=== PATIENT | male | born 1950 | race Caucasian/White ===

== ENCOUNTER → 2018-10-18 19:13 | Outpatient (REF) | payer MEDICARE, OTHER, SELFPAY ==
[2018-10-18 19:55] LABS: BUN Creatinine Ratio 15.5 (6-22); Blood Urea Nitrogen 17 mg/dL (9-20); Calcium 9.2 mg/dL (8.4-10.2); Carbon Dioxide 27 mmol/L (22-32); Chloride 105 mmol/L (98-107); Estimated Glomerular Filt Rate > 60.0 mL/min (>60); Glucose 134 mg/dL (80-110); HEMOLYSIS < 15 (0-50); Sodium 142 mmol/L (137-145)
[2018-10-23 21:10] LABS: Specimen Source Kidney
== END ==
LOC: LAB 19:13
PROVIDERS: Visit Provider Family Medicine Geriatric Medicine
DX: N20.9 Urinary calculus, unspecified (principal); M17.12 Unilateral primary osteoarthritis, left knee
CPT/HCPCS: 36415; 80048; 82370

== ENCOUNTER → 2019-03-21 13:26 | Outpatient (CLI) | payer MEDICARE, OTHER, SELFPAY ==
--- NOTE | 2019-03-21 | DI.RAD.S_ITS ---
PROCEDURE: FL ARTHROGRAM KNEE LT INDICATIONS: INTERNAL DERANGEMENT LEFT KNEE TECHNIQUE: The indications, alternatives, benefits, risks, and complications of the procedure were explained to the patient. Written informed consent was obtained and placed in the chart. The knee was examined fluoroscopically, and a site chosen for knee joint injection. The skin was prepped and draped in a sterile fashion, and 1% Lidocaine infiltrated from the skin down to the articular surface. A hypodermic needle was then introduced into the joint and iodinated contrast media was instilled to confirm the intra-articular needle tip placement. This was followed by approximately 50 mL dilute solution of a gadolinium containing MR contrast agent. The needle was removed and a bandage was applied. An Felipe wrap was then applied around the knee joint to keep the contrast from collecting in the suprapatellar recess. The patient experienced no complications throughout the procedure and left the fluoroscopic suite in no apparent distress. FINDINGS: Single fluoroscopic spot image demonstrates intra-articular location to injected iodinated contrast. IMPRESSION: Successful fluoroscopically guided administration of dilute Gadolinium solution into the knee joint for MR arthrogram. Dictated by: Santiago Golden M.D. on 03/21/2019 at 14:46 Approved by: Santiago Golden M.D. on 03/21/2019 at 14:47
--- NOTE | 2019-03-21 | DI.MRI.S_ITS ---
PROCEDURE: MR KNEE LT W CON INDICATIONS: INTERNAL DERANGEMENT LEFT KNEE TECHNIQUE: After the administration of 50 mL of dilute intra-articular Gadolinium contrast, sagittal T1 spin echo with fat saturation and PD fast spin echo with fat saturation, coronal T1 spin echo with and without fat saturation, coronal T2 fast spin echo with fat saturation, axial PD fast spin echo with fat saturation through the knee. COMPARISON: [facility] Outside Film, MR, MR KNEE LEFT WITHOUT CONTRAST, 11/10/2018, 11:27. FINDINGS: Image quality: Excellent. Menisci: Lateral meniscus appears intact. Marked truncation of the free margin of the medial meniscal body, in addition to abnormal intermediate signal extending to the undersurface of the posterior horn. However, no definite intrasubstance gadolinium signal intensity. Cruciate ligaments: The anterior and posterior cruciate ligaments appear intact. Medial structures: The medial collateral ligament appears intact. The posterior oblique ligament, semimembranosus tendon insertions, oblique popliteal ligament, and meniscocapsular junction appear intact. Visualized portions of the pes anserinus tendons appear normal. No abnormal bursal fluid. Lateral structures: The lateral collateral ligament, long and short heads of the biceps femoris tendon appear intact. The popliteus tendon appears normal; the popliteofibular ligament appears intact. The posterosuperior and anteroinferior popliteomeniscal fascicles appear intact. The arcuate and fabellofibular ligaments appear intact around the lateral inferior geniculate artery. Iliotibial band appears normal. Anterior structures: The quadriceps and patellar tendons appear intact although there is mild proximal and distal patellar tendinopathy. Patellar alignment is normal. No femoral trochlear dysplasia or ventral trochlear prominence. No edema in the infrapatellar fat pad. Bone and cartilage: No focal marrow contusion or discrete low signal fracture line. Within the medial compartment, full-thickness femoral and tibial articular cartilage loss with subchondral marrow edema. Within the lateral compartment, mild diffuse partial-thickness loss of the femoral cartilage. Subchondral marrow edema may be related to early intraosseous ganglion cyst formation on image 20 series 12. Within the patellofemoral compartment, diffuse surface fraying of the femoral and patellar articular cartilage. Joint space: No Easley's cyst. No intra-articular loose bodies identified. IMPRESSION: Medial meniscal irregularity involving the body and posterior horn, which could be related to postoperative change if there is concordant surgical history (versus tear). Overall, the appearance grossly unchanged since 11/10/18, and no definite intrasubstance gadolinium signal intensity to suggest recurrent tear. Severe degenerative joint disease, most pronounced in the medial compartment. Slight interval progression. Age-indeterminate mild proximal and distal patellar tendinopathy. Dictated by: Santiago Golden M.D. on 03/21/2019 at 16:08 Approved by: Santiago Golden M.D. on 03/21/2019 at 16:18
== END ==
PROVIDERS: Visit Provider Orthopaedic Surgery
DX: M23.92 Unspecified internal derangement of left knee (principal); M17.12 Unilateral primary osteoarthritis, left knee
CPT/HCPCS: 27369; 73722; 77002

== ENCOUNTER → 2022-05-10 11:17 | Outpatient (CLI) | payer MEDICARE, OTHER, SELFPAY ==
[2022-05-10 12:06] LABS: COVID19 -Nasal RAPID Negative (Negative)
== END ==
PROVIDERS: PCP Family Medicine; Referring Provider Orthopaedic Surgery; Visit Provider Orthopaedic Surgery
DX: Z20.822 Contact with and (suspected) exposure to COVID-19 (principal)
CPT/HCPCS: 87635; C9803

== ENCOUNTER 2022-05-12 11:04 | Day surgery (SDC) | payer MEDICARE, OTHER, SELFPAY ==
[2022-05-10 09:44] VITALS: BMI 26.4
[2022-05-12] VITALS (7 sets, daily range): BP systolic 109–173; BP diastolic 60–87; PULSE 55–70; RESP 16–28; TEMP 36–36.5; O2SAT 96–98; BMI 26.4
[2022-05-12] MEDS: LACTATED RINGERS 1,000 ML 42 ML IV ×2 (12:10→14:50)
--- NOTE | 2022-05-12 13:14 | P.HP_ITS ---
History of Present Illness History of Present Illness Date Patient Seen: 05/12/22 Time Patient Seen: 13:15 Chief complaint: MCPJ Replacement R Narrative: Patient with longstanding pain and stiffness to the MCP joint of his index finger. Patient has been unresponsive to conservative treatment and is having a significant impact on his everyday hand use. Patient History Medical History Anxiety Benign essential HTN CAD (coronary artery disease) Chronic hepatitis C without mention of hepatic coma Cognitive impairment Depression Epilepsy GERD (gastroesophageal reflux disease) H/O renal calculi History of heart attack Hx of irritable bowel syndrome Hyperlipidemia Hypertriglyceridemia Insomnia due to medical condition Migraines NSTEMI (non-ST elevated myocardial infarction) (2011) Obstructive sleep apnea, adult Osteoarthritis of left knee Osteoarthritis of right hand Rosacea, unspecified Seizure disorder TIA (transient ischemic attack) Type 2 diabetes mellitus Vitamin B12 deficiency Surgical History History of cardiac cath (2016) S/P coronary artery stent placement (06/21/12) Family & Social History Family History Mother Depression Dementia Family/Other Alcohol abuse Social History: household members spouse Tobacco & Substance use: Smoking Status Former smoker alcohol intake former Substance Use Type does not use Meds Home Medications and Allergies Home Medications Medication Instructions Recorded Confirmed Type acetaminophen 325 mg tablet PRN ##0 02/07/17 12/13/20 History amitriptyline 10 mg tablet 10 mg PO QDAY ##0 02/07/17 12/13/20 History aspirin 81 mg tablet,delayed 81 mg PO QDAY ##0 02/07/17 12/13/20 History release (Martin Low Dose Aspirin) bismuth subsalicylate 262 mg/15 mL 524 mg PO Q30M PRN (Drug) Ingestion 09/07/20 12/13/20 History oral suspension (Pepto-Bismol) coenzyme Q10 100 mg capsule 100 mg PO DAILY 09/07/20 05/12/22 History desonide 0.05 % topical cream 1 applic topical DAILY 09/07/20 05/03/22 History diphenhydramine HCl 25 mg tablet 25 mg PO QID PRN Allergies 09/07/20 05/03/22 History (Allergy (diphenhydramine)) melatonin 1 mg tablet 1 mg PO BEDTIME PRN Sleep 09/07/20 05/12/22 History triamcinolone acetonide 0.1 % 1 applic topical DAILY PRN Rash 09/07/20 05/03/22 History topical cream (Triderm) levetiracetam 250 mg tablet 250 mg PO .COMPLEX seizures 12/13/20 05/12/22 Histo ry (Keppra) metformin 500 mg tablet 500 mg PO BID 12/13/20 05/12/22 History metoprolol succinate 50 mg 50 mg PO QDAY #0 tabs 12/13/20 05/12/22 History tablet,extended release 24 hr nitroglycerin 0.4 mg sublingual 0.4 mg sublingual PRN #0 tabs 12/13/20 05/03/22 History tablet (Nitrostat) rosuvastatin 20 mg tablet (Crestor) 20 mg PO DAILY 12/13/20 05/12/22 History sertraline 50 mg tablet (Zoloft) 50 mg PO DAILY 12/13/20 05/12/22 History sumatriptan succinate 25 mg tablet 25 mg PO ONCE 12/13/20 05/03/22 History (Imitrex) terbinafine HCl 250 mg tablet 250 mg PO DAILY fungal infection 12/13/20 05/12/22 History Allergies Allergy/AdvReac Type Severity Reaction Status Date / Time hydrocodone AdvReac Mild nausea, Verified 05/12/22 11:29 vomiting hydromorphone AdvReac Mild nausea, Verified 05/12/22 11:29 vomiting lisinopril [LISINOPRIL] AdvReac Mild Cough Verified 05/12/22 11:29 meperidine AdvReac Mild nausea Verified 05/12/22 11:29 oxycodone [From PERCOCET] AdvReac Mild Nausea Verified 05/12/22 11:29 propoxyphene AdvReac Mild Nausea Verified 05/12/22 11:29 [From DARVOCET-N] Exam Vital Signs (past 8 hours): - 05/12/22 11:45 Temperature 97.7 F Pulse Rate 55 L Respiratory Rate 18 Blood Pressure 153/79 H Pulse Oximetry 98 Oxygen Delivery Method Room Air Oxygen Delivery Method Room Air Narrative Exam Narrative: Slight increase in joint size at the MCP joint. Able to fully extend but limited in flexion to about 60?. Pain of push beyond that passively. No sign of any significant instability. Stable to varus and valgus stress. No sign of any sagittal band injuries. Normal motion at the D IP and PIP joint of that right index finger. Assessment & Plan Assessment & Plan narrative: Patient with end-stage arthritic changes to his right index finger MCP joint. Patient has been unresponsive to conservative treatment. Due to this fact patient is interested in a MCP joint replacement. Patient fully understands the risks and limitations associated with the procedure. All of his questions and concerns were answered to his full satisfaction. The risk, benefits, alternatives, possible complications, operative course, and postop outcomes were discussed. Complications including but not limiting to bleeding, infection, fracture, nerve injury, continued pain postoperatively or instability postoperatively were discussed in detail. Medical complications including but not limited to deep venous thrombosis event, anesthesia complications with excessive bleeding, vascular events or cardiac events and other possible complications were discussed in detail. Need for postoperative rehabilitation and anticipated hospital stay and clinical course were discussed in detail. Patient acknowledges understanding and elects to proceed with surgery. Time Spent With Patient Critical Care time: I spent a total of [] minutes of critical care time on this patient's care today; this time is exclusive of procedural time.
--- NOTE | 2022-05-12 13:17 | PM.PREOP ---
Pre-operative Note Interval Note History & Physical reviewed/Exam performed by Physician: Yes Changes to H&P: No
[2022-05-12] MEDS: CEFAZOLIN 2 GM/100 ML PREMIX 100 ML IV (13:45)
--- NOTE | 2022-05-12 14:18 | SUR.OPER ---
Supine on padded OR bed, head on pillow, arms secured on padded arm boards at <90 degrees abduction, legs uncrossed, safety belt at thigh, tape over blanket over lower legs. Pillow under knees, gel pad under heels.
[2022-05-12] MEDS: BUPIVACAINE 0.5% W/ EPI (PF) 30 ML VIAL INJ (14:27)
--- NOTE | 2022-05-12 15:09 | P.OP_ITS ---
Operative Date/Time/Diagnoses Date of procedure: 05/12/22 Time of procedure: 13:30 Pre-op diagnosis: Right index finger MCP joint arthritis Post-op diagnosis: same Procedure & Clinicians Procedure: Right index finger MCP joint replacement Same procedure as scheduled: Yes Indications: End-stage arthritis MCP joint Surgeon: Tex [place] Click Yes if Unassisted: Yes Anesthesia Type: General Operative Notes Findings: End-stage arthritis to the MCP joint of the right index finger with full- thickness cartilage loss. Applied: implant(s) (Size 30 pyrocarbon implant) Procedure in detail: On date of service patient was met in the holding area where his operative site was signed witnessed by the OR staff. Surgery was once again discussed with the patient and any remaining questions or concerns he had were answered fully. Patient was taken back to the operating theater placed on the operating table in a supine position. Great care was taken to ensure that all bony prominences were appropriately padded a well-padded tourniquet was placed up along the upper extremity. Time-out was performed verifying patient's name, procedure, and operative site. Esmarch was used to exsanguinate the limb and the tourniquet was turned up to 250 mmHg. A dorsal incision was made over the MCP joint using a 15 blade. Fifteen blade was used incise the skin and fascial tissue. Electrocautery was used to achieve hemostasis. Retractors were placed and a deep knife was then used to make an incision just to the side of the extensor tendons through the joint capsule. Sharp dissection was continued in till the joint was exposed. As mentioned above there was full-thickness cartilage loss. Guidewire was placed into the metacarpal. Alignment guide was placed and verified its position using AP and lateral views with the C-arm. Once we were satisfied with our alignment cutting guide was placed the saw was then used to remove the articular surface of the metacarpal. The bone was then broached and a size 30 provided the best fit. While broaching the alignment guide was used to verify its overall positioning on both AP and lateral views. Similar procedure was done to the proximal phalanx. Guidewire was placed into the proximal phalanx followed by the alignment guide. Once we were satisfied with our alignment, saw was then used to remove the articular surface of the proximal phalanx. Proximal phalanx was then reamed and broached and once again a size 30 was the appropriate fit. Trial gets were placed and the finger was taken through range of motion. We were able to fully flex and extend with a finger with no sign of any gapping or stiffness. The wound was then copiously irrigated and then final implants were impacted into place. Wound was copiously irrigated and then closed in a layered fashion. Capsule and surrounding tissue was closed with Ethibond. This provided a stable closure of the joint capsule and the finger was stable to varus and valgus stress as well as dorsal and volar stress. No sign of any instability at the MCP joint either in full extension or full flexion. Rest of the wound was closed in layered fashion. Finger was then cleaned, dried, and dressed patient was placed into a splint and taken to the PACU in stable condition. Complications: none Post-operative Condition: stable Disposition: PACU Plan for aftercare: Patient will follow our postoperative protocol for MCP joint replacement
[2022-05-12] MEDS: ACETAMINOPHEN 325 MG TABLET 975 MG PO (16:01)
== END 2022-05-12 16:30 | disposition home or self-care (01) ==
PROVIDERS: PCP Family Medicine; Referring Provider Orthopaedic Surgery; Visit Provider Orthopaedic Surgery
PROC: (CPT 26535; principal; 2022-05-12 13:45)
DX: M19.041 Primary osteoarthritis, right hand (principal); I25.10 Atherosclerotic heart disease of native coronary artery without angina pectoris; G47.33 Obstructive sleep apnea (adult) (pediatric); G40.909 Epilepsy, unspecified, not intractable, without status epilepticus; I10 Essential (primary) hypertension; E78.5 Hyperlipidemia, unspecified; B18.2 Chronic viral hepatitis C; K21.9 Gastro-esophageal reflux disease without esophagitis; E11.9 Type 2 diabetes mellitus without complications; Z79.84 Long term (current) use of oral hypoglycemic drugs
CPT/HCPCS: 26531; C1776; J0690; J1100; J2250; J2405; J2704; J3010